=== PATIENT | male | born 1955 | race Caucasian/White ===

== ENCOUNTER → 2023-08-29 15:28 | Outpatient (REF) | payer BC, SELFPAY | LOC: RCS 15:28 | PROVIDERS: ATTENDING PHYSICIAN Internal Medicine; FAMILY PHYSICIAN Nurse Practitioner | DX: Z02.4 Encounter for examination for driving license (principal); I48.19 Other persistent atrial fibrillation | CPT/HCPCS: 93306 ==

== ENCOUNTER → 2023-08-31 11:37 | Outpatient (REF) | payer BC, SELFPAY | LOC: DHCBC/DCA 11:37 | PROVIDERS: ATTENDING PHYSICIAN Internal Medicine; FAMILY PHYSICIAN Nurse Practitioner | DX: Z02.4 Encounter for examination for driving license (principal); I48.19 Other persistent atrial fibrillation | CPT/HCPCS: 78452; 93017; A9500; J2785 ==